=== PATIENT | female | born 1995 | race Caucasian/White ===

== ENCOUNTER → 2018-01-29 | Outpatient (CLI) | payer OTHER ==
[~2018-01-29] MED LIST: CIPR-344 PO; LEVO750T27 PO; LOR5/325 PO; NORE-20 PO; PHEN200T32 PO; SERT-1 PO; SERT25TA87 PO; bcp
[2018-01-29 12:23] LABS: PLATELET COUNT, AUTOMATED 208 K/uL (150-450)
[2018-01-29 12:33] LABS: LDL CHOLESTEROL 66 mg/dl
== END ==
LOC: LAB 12:04
PROVIDERS: ATTEND Nurse Practitioner Family
DX: Z00.00 Encounter for general adult medical examination without abnormal findings (principal)
CPT/HCPCS: 36415; 82040; 82247; 82310; 82374; 82435; 82465; 82565; 82947; 83718; 84075; 84132; 84155; 84295; 84443; 84450; 84460; 84478; 84520; 85025

== ENCOUNTER → 2019-02-15 | Outpatient (CLI) | payer OTHER ==
[~2019-02-15] MED LIST changes: +FLU60VIA41 IM; +SERT-181 PO; +SUMA50TA34 PO
[2019-02-15 17:25] LABS: PLATELET COUNT, AUTOMATED 199 K/uL (150-450)
== END ==
LOC: LAB 17:07
PROVIDERS: ATTEND Nurse Practitioner Family
DX: R53.83 Other fatigue (principal)
CPT/HCPCS: 36415; 82040; 82247; 82310; 82374; 82435; 82565; 82947; 84075; 84132; 84155; 84295; 84443; 84450; 84460; 84520; 85025